=== PATIENT | male | born 1965 | race Caucasian/White ===

== ENCOUNTER → 2016-09-09 | Outpatient (CLI) | payer OTHER | LOC: FIMAGING 15:28 | PROVIDERS: ATTEND Neurological Surgery | DX: Z98.1 Arthrodesis status (principal); M54.2 Cervicalgia ==

== ENCOUNTER 2018-05-15 09:15 | Inpatient (IN) | payer OTHER ==
[2018-05-15] MEDS ORDERED: BUPIVACAINE 0.25% 30 ML SDV ONE (09:23)
[2018-05-15] MEDS ORDERED: BACITRACIN 50,000 UNITS/10 ML SYR IRR ONE (09:24)
[2018-05-15] MEDS ORDERED: THROMBIN (BOVINE) 5,000 UNIT VIAL TP ONE (09:24)
[2018-05-15] MEDS ORDERED: EPINEPHrine 1 MG/ML INJ ONE (09:24)
[2018-05-15] MEDS ORDERED: ACETAMINOPHEN 500 MG TAB PO ONE (09:30)
[2018-05-15] MEDS ORDERED: ceFAZolin 2 GM/DEXTROSE 100 ML IV ONE (09:30)
[2018-05-15] MEDS ORDERED: GABAPENTIN 300 MG CAP PO ONE (09:30)
[2018-05-15] MEDS ORDERED: LR 1,000 ML IV ONE (10:14)
--- NOTE | 2018-05-15 10:20 | PDANEPAE ---
ANE Past Medical History - Cardiovascular History Hx Hypertension: No Hx Arrhythmias: No Hx Chest Pain: No Hx Coronary Artery / Peripheral Vascular Disease: Yes Hx CHF / Valvular Disease: No Hx Palpitations: No Cardiovascular History Comment: STENT 07/2017. ? MILD MA - Pulmonary History Hx COPD: No Hx Asthma/Reactive Airway Disease: No Hx Recent Upper Respiratory Infection: No Hx Oxygen in Use at Home: No Hx Sleep Apnea: Yes Sleep Apnea Screening Result - Last Documented: Positive Pulmonary History Comment: HADLEY W/CPAP INSTRUCTED TO BRING DOS - Neurologic History Hx Cerebrovascular Accident: No Hx Seizures: No Hx Dementia: No - Endocrine History Hx Diabetes: No - Renal History Hx Renal Disorders: No - Liver History Hx Hepatic Disorders: No - Neurological & Psychiatric Hx Hx Neurological and Psychiatric Disorders: Yes Neurological / Psychiatric History Comment: cervical stenosis - Cancer History Hx Cancer: No - Congenital Disorder History Hx Congenital Disorders: No - GI History Hx Gastrointestinal Disorders: Yes Gastrointestinal History Comment: INTERMITTENT HEARTBURN USES OTC - Other Health History Other Health History: SPINAL STENOSIS - Chronic Pain History Chronic Pain: Yes (CERVICAL WITH RADIATION IN TO RT SHLDR/ARM) - Surgical History Prior Surgeries: cervical fusion x2 LAST 2010. LT ARM X2. JULIA KNEE'S SCOPES ANE Review of Systems Review of Systems: - Exercise capacity METS (RN): 4 METS ANE Patient History - Allergies Allergies/Adverse Reactions: No Known Allergies Allergy (Verified 04/27/18 10:57) - Home Medications Home Medications: DULoxetine [Cymbalta 30 MG (*)] 30 mg PO DAILY 05/09/17 [Last Taken 05/15/18] Aspirin [Aspirin 81mg (*)] 81 mg PO DAILY 04/27/18 [Last Taken 05/07/18] Atorvastatin Calcium [Lipitor 40 mg (*)] 40 mg PO DAILY 04/27/18 [Last Taken ] Clopidogrel Bisulfate [Plavix (*)] 75 mg PO DAILY 04/27/18 [Last Taken 05/07/18] Metoprolol Succinate Xr [Toprol Xl 25 mg (*)] 25 mg PO DAILY 04/27/18 [Last Taken 05/15/18] Testosterone IM [Testosterone 100mg/ml IM inj (*)] 130 mg IM TU 04/27/18 [Last Taken 05/11/18] - NPO status NPO Since - Liquids (Date): 05/15/18 NPO Since - Liquids (Time): 07:30 NPO Since - Solids (Date): 05/14/18 NPO Since - Solids (Time): 19:00 - Smoking Hx Smoking Status: Never smoked ANE Labs/Vital Signs - Vital Signs Blood Pressure: 108/76 Heart Rate: 65 Respiratory Rate: 16 O2 Sat (%): 94 Height: 185.42 cm Weight: 95.254 kg ANE Physical Exam - Airway Mallampati Score: Class 1 - ASA Status ASA Status: III ANE Anesthesia Plan Anesthesia Plan: general endotracheal anesthesia
--- NOTE | 2018-05-15 10:24 | PDHPUP ---
History & Physical Update H&P update statement: This history and physical update is based on an assessment of the patient which was completed after admission or registration (within 24 hours), but prior to the surgery/procedure. H&P update: H&P reviewed & patient examined, no change in patient's condition since H&P completed
[2018-05-15] MEDS ORDERED: MIDAZOLAM 2 MG/2 ML VIAL ONE (10:25)
[2018-05-15] MEDS ORDERED: fentaNYL 100 MCG/2 ML INJ ONE ×3 (10:27→14:55)
[2018-05-15] MEDS ORDERED: PROPOFOL 200 MG/20 ML VIAL ONE (10:27)
[2018-05-15] MEDS ORDERED: PROPOFOL/EMULSION 500 MG/50 ML BOTTLE IV ONE ×2 (10:28→13:03)
[2018-05-15] MEDS ORDERED: LACTULOSE 20 GM/30 ML UDCUP PO PRN (11:13)
[2018-05-15] MEDS ORDERED: POLYETHYLENE GLYCOL 3350 17 GM PKT PO PRN (11:13)
[2018-05-15] MEDS ORDERED: BISACODYL 10 MG SUPP PR PRN (11:13)
[2018-05-15] MEDS ORDERED: ONDANSETRON 4 MG/2 ML VIAL IVP PRN ×2 (11:13→14:50)
[2018-05-15] MEDS ORDERED: diphenhydrAMINE 25 MG CAP PO PRN (11:13)
[2018-05-15] MEDS ORDERED: MAGNESIUM HYDROXIDE 30 ML UDCUP PO PRN (11:13)
[2018-05-15] MEDS ORDERED: ONDANSETRON DISINTEGRATING 4 MG TAB PO PRN (11:13)
[2018-05-15] MEDS ORDERED: METOCLOPRAMIDE 10 MG/2 ML VIAL ONE (11:14)
[2018-05-15] MEDS ORDERED: ONDANSETRON 4 MG/2 ML VIAL ONE (11:14)
[2018-05-15] MEDS ORDERED: ROCURONIUM 50 MG/5 ML VIAL ONE (11:14)
[2018-05-15] MEDS ORDERED: NS 1,000 ML IV SCH (11:15)
--- NOTE | 2018-05-15 11:32 | PDMN ---
Medical Necessity Medical necessity: AUTH # [id number] APPROVED FOR INPT VALID FOR ONE DOS. DONE IN PT MCG: S320 cervical fusion: A-1 day: hardware removal C4/5,C6/7
[2018-05-15] MEDS ORDERED: METHYLENE BLUE 0.5% 50 MG/10 ML AMP ONE (12:58)
[2018-05-15] MEDS ORDERED: GABAPENTIN 300 MG CAP PO SCH (14:00)
[2018-05-15] MEDS ORDERED: ceFAZolin 2 GM/DEXTROSE 100 ML IV SCH (14:00)
[2018-05-15] MEDS ORDERED: ACETAMINOPHEN 500 MG TAB PO SCH (14:00)
[2018-05-15] MEDS ORDERED: NALOXONE HCL 0.4 MG/ML INJ IVP PRN (14:50)
[2018-05-15] MEDS ORDERED: PROMETHAZINE HCL 25 MG/ML INJ IVP PRN (14:50)
[2018-05-15] MEDS ORDERED: LR 500 ML IV PRN (14:50)
--- NOTE | 2018-05-15 14:52 | POSTANESTH ---
Post Anesthetic Evaluation Cardiovascular Status: Similar to Pre-Op Cond Respiratory Status: Normal, Stable Level of Consciousness/Mental Status: Can Participate in Eval Pain Control: Adequate, Prn Tx Ordered Nausea/Vomiting Control: Adequate, Prn Tx Ordered Complications Possibly Related to Anesthesia: None Noted
[2018-05-15] MEDS: fentaNYL 100 MCG/2 ML INJ IVP PRN ×2 (14:59→15:04)
[2018-05-15] MEDS ORDERED: HYDROmorphONE/DILAUDID 2 MG/ML INJ ONE (15:09)
[2018-05-15] MEDS: HYDROmorphONE/DILAUDID 2 MG/ML INJ IVP PRN ×5 (15:13→16:05)
--- NOTE | 2018-05-15 15:17 | POSTOPPROG ---
Post Op Note Date of Operation: 05/15/18 Surgeon: Lesli Lr Auto Service Advisor: Karin Dorsey NP Anesthesiologist: Octavia Anesthesia: GET(General Endotracheal) Pre-op Diagnosis: Cervical stenosis Procedure: Hardware removal with ACDF C5-6 with ACDF C4-5, C6-7 Inf/Abcess present in the surg proc area at time of surgery?: No Depth: Deep Incisional (Fascial) EBL: 50-100 Total fluids administered: see anesthesia Complications: None Date of Surgery: 05/15/18 Post Op Day: 0 Assessment/Plan: Assessment: 53 yr old M s/p Hardware removal C5-6 with ACDF C4-5, C6-7 Plan: -Admit med surg -PT/OT/ST -Hard collar in place -Pain management -Call neurosurgery with questions/concerns Subjective: Waking up in PACU Objective: Waking up in PACU, awake and talking PERRLA No facial droop 5/5 BUE B[address] Collar in place Dressing CDI Appropriate Neuro Check Frequency Ordered: Yes
--- NOTE | 2018-05-15 16:06 | GOP ---
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 Right cervi riaz radiculopathy. Cervical stenosis and right foraminal stenosis C6-7. Prior cervical fusion, C5-6 . 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 Right cerv ical radiculopathy. Cervical stenosis and right foraminal stenosis C6-7. Prior cervical fusion, C5- 6. PROCEDURE PERFORMED: Removal of anterior cervical instrumentation at C4-5 (06234). Anterior cervica l diskectomy with repeat decompression at C4-5 with arthrodesis (12485). Placement of biomechanical intervertebral device C4-5 (65668). Anterior cervical arthrodesis and decompression C6-7 (99655). P lacement of anterior cervical plating system 3 levels (32893) at C4, C5, C6, C7. Same incision bone graft harvest (02207). FINDINGS: ESTIMATED BLOOD LOSS: 100 cc INDICATIONS: The patient is a 53-year-old gentleman who has had a number of cervical spine surgeries , including surgery at C5-6 with successful arthrodesis there, followed later by arthrodesis and plat ing at C4-5. Unfortunately, this was complicated by pseudarthrosis. He had persistent cervicalgia a nd developed right-sided radiating pain, and MRI demonstrated evidence of cervical stenosis, both bel ow and at the same level of his prior surgery. I felt that this pseudoarthrosis might, in fact, be s ymptomatic, although it is difficult to know with certainty. 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 I suggested re-doing the C4-5 level and removing that plate, followed by an ACDF at C6-7, but we also discussed posterior cervical instrumentation as well as the chance to minimize pseudoarthrosis. He understood that would give him almost a near certain chance of healing the revised cervical surgery t hat I was going to do, but that it would come at expense of perioperative discomfort. The surgery po steriorly is considerably uncomfortable and would be especially difficult for him. I thought it was reasonable to try doing an ACDF at C4-5 and C6-7 without it, but he knew that he was at increased ris k of another pseudarthrosis. The risk of esophageal injury, carotid injury, recurrent laryngeal nerv e injury was discussed. He knew that he may have severe and profound dysphagia from the anterior dean grajeda, knew there was risk of injury to the esophagus, itself, and damage to the recurrent laryngeal nerve, as well as other nerves in the neck. He knew there was a chance surgery may fail to give him relief and that in time, he may ultimately undergo another surgery in the cervical spine. He wanted to proceed despite the risks and I carefully discussed surgery on several occasions over many years i n fact, and he did finally elect to proceed. DESCRIPTION OF PROCEDURE: The patient was taken to the operating room, placed in the supine position . General anesthesia was begun. He was carefully positioned in the supine position on operating jeremiah m table with a midline shoulder roll. His arms were tucked at his side. His neck was sterilely prep ped and draped in usual fashion. He had had numerous incisions on the right side of the neck and I e lected to go from the left. He had right-sided pain. We made a transverse incision in the lower neck crease on the left-hand side and dissected through e platysma with the Bovie cautery. The subcutaneous tissue was dissected using a combination of blun t and sharp dissection medial to the sternocleidomastoid and out lateral to the strap muscles down to the prevertebral space. His neck was quite thick and very deep, and it did, indeed, take considerab le time to get down to the prevertebral space. We worked our way down and I found the disk space radha t I thought might be C6-7, we shot an x-ray and indeed, it was. We went rostral from this, up across a 5, 6 area and then I found the anterior cervical plate at C4-5. We had a little bit of a reach fr om our original exposure. We actually came out and dissected somewhat more rostrally through the cornelio e skin incision medial to the sternocleidomastoid and lateral to the strap muscles down to the prever tebral space. This gave us a much better angle at C4-5. This became contiguous with the prior disse ction and we had an excellent exposure. His esophagus was totally stuck to the ventral surface of the spine at C4-5 and C5-6, and we used a p eanut to gently peel the esophagus up off the spine and we were ultimately able to mobilize then. Th ere was no breach of the esophagus, itself. At the end of the procedure, we did, however, test esoph ageal integrity by infusing methylene blue into the area of our surgery and we saw none leaking at th e end of surgery. We exposed the prior plate and took the longus colli muscles off the spine at C4-5, 5-6, 6-7, and the n used the Nuvasive hardware to remove the cervical plate at C4-5. It was easily removed. We then p laced a retractor underneath the longus colli muscle and under the microscope. We drilled out the ar ea of the pseudoarthrosis. There was a contiguous scar through the disk space at C4-[address] ck to the area of the spinal canal. We simply followed the scar down to the spinal canal. We drille d the scar completely out and we drilled a large amount of subchondral bone and harvested this for au tologous grafting purposes. We then opened the area of the posterior and longitudinal ligament. It did not appear to be intact. There had been prior surgery done here, but we worked our way along the posterior margin of the vert ebral body out above the C5 pedicle and into the neural foramen for the exiting C5 nerve root and got a great decompression, even though prior decompression been performed there. There was foraminal st enosis. We chose a 6 mm anatomic PEEK cage, packed it with bone autograft, and then inserted it at C 4-5, and got a great fit. We then adjusted our retractor down to the C5-6 level. This was clearly totally fused, and then, we went down to C6-7. Here, we placed distraction pins in the vertebral bodies, distracted at C6-7, rem jocelyn the disk and the cartilaginous endplate completely. We drilled and harvested subchondral bone f or autologous grafting purposes and opened the PLL and decompressed the thecal sac and the neural for amen bilaterally and we got a great decompression. We then chose an 8 x 16 x 14 mm anatomic PTC cage impacted with large amounts of bone autograft, and inserted it at C6-7. We then sized the plate and chose a 57 mm Zevo plate and increased the lordosis at the bottom end of the plate especially to allow us to attach to the C7 vertebral body. We used a 3.5 mm screws at C4 a nd 3.5 x 17 mm screw at C7. We shot an x-ray and the screws were in good position. The C7 screws ap peared to not traverse the C7-T1 disk and they did not interfere with the implant at C6-7 itself, but it was difficult to understand their true trajectory based upon the patient's body habitus. We then put the remaining screws in place at C4, C5, C6, and C7, and on final x-rays, they all appeared to b e excellent. We had adjusted the C4 screws inferiorly. The prior plate was somewhat high and we had brand new screws at C4 that were just above our implant at C4-5. I was very happy with this. We locked all the screws according to company specification. We then took time to meticulously inspe ct the area. There was no evidence of methylene blue in the prevertebral space. We achieved meticul ous hemostasis. We then placed 0.25% Marcaine into the prevertebral space. We then closed the platy sma with interrupted Vicryl sutures and the skin was reapproximated with interrupted Vicryl sutures. Steri-Strips were applied the skin. The patient was reversed from anesthesia, extubated, and transf erred to recovery room in stable condition. There were no complications. COMPLICATIONS: None. INSTRUMENTATION USED: We removed a NuVasive anterior cervical plate and we placed a Medtronic 3-leve l plate, it was a 57 mm Zevo plate with 3.5 x 17 mm screws with a 6 x 16 x 14 mm anatomic PTC cage at C4-5. We also used an 8 x 16 x 14 mm anatomic PTC cage at C6-7. COMPLICATIONS: None. /[id number]/MODL
[2018-05-15] MEDS: oxyCODONE IR 5 MG TAB PO PRN ×2 (18:38→23:01)
[2018-05-15] MEDS: METHOCARBAMOL 750 MG TAB PO PRN (18:46)
[2018-05-15] MEDS: SENNOSIDES/DOCUSATE SODIUM TAB PO SCH (20:46)
[2018-05-15] MEDS: FAMOTIDINE 20 MG TAB PO SCH (20:47)
[2018-05-15] MEDS: TEMAZEPAM 15 MG CAP PO PRN (23:01)
[2018-05-16] MEDS: GABAPENTIN 300 MG CAP PO SCH ×3 (00:12→17:02)
[2018-05-16] MEDS: ACETAMINOPHEN 500 MG TAB PO SCH ×3 (00:12→16:58)
[2018-05-16] MEDS ORDERED: ceFAZolin 2 GM/DEXTROSE 100 ML IV SCH (01:00)
[2018-05-16] MEDS: oxyCODONE IR 5 MG TAB PO PRN ×5 (03:51→20:59)
[2018-05-16] MEDS: METHOCARBAMOL 750 MG TAB PO PRN ×3 (03:51→19:07)
[2018-05-16 04:47] LABS: PLATELET COUNT 178 10^3/uL (150-400)
--- NOTE | 2018-05-16 07:58 | NEUSURGPN ---
Date of Surgery: 05/15/18 Post Op Day: 1 Assessment/Plan: Assessment: 53 yr old M s/p Hardware removal C5-6 with ACDF C4-5, C6-7 POD#1 Plan: -PT/OT/ST -Hard collar in place -Pain management, currently controlled with oral medications -Post op xrays pending -Call neurosurgery with questions/concerns Discussed with Dr Lr Subjective: numbness improved in right hand Objective: AxO x4 HEREDIA x4 5/5 BUE, BLE Dressing CDI Collar in place Neuro Check Frequency: per routine Urinary Catheter in Place: No - Physician Discussed Patient with Dr.: Be Patient Seen by : Be Neurosurgery Physical Exam - Vitals, I&O, Labs I and O 05/15/18 05/16/18 05/17/18 05:59 05:59 05:59 Intake Total 3410 Output Total 550 Balance 2860 Weight 95.254 kg Intake: Oral (ml) 1810 IV Intake (ml) 1500 IV Infused (ml) 100 ceFAZolin 2 GM/DEXTROSE 100 100 ml @ 200 mls/hr IV Q8H [facility] Rx#:[id number] Output: Urine (ml) 425 Urinal 425 Estimated Blood Loss (ml) 125 Other: Intake Quantity Yes Sufficient Number of Voids Toilet 1 Urinal 1 Vital Signs Temp Pulse Resp BP Pulse Ox 36.8 C 78 17 117/63 95 05/16/18 03:45 05/16/18 03:45 05/16/18 03:45 05/16/18 03:45 05/16/18 03:45 Laboratory Results 05/16/18 04:28 05/16/18 04:28 ICD10 Worksheet Patient Problems: Problems Problem Status Onset Cervical stenosis of spine Acute - ICD10 Problem Qualifiers (1) Cervical stenosis of spine
[2018-05-16] MEDS: ATORVASTATIN CALCIUM 40 MG TAB PO SCH (08:52)
[2018-05-16] MEDS: DULoxetine 30 MG CAP PO SCH (08:52)
[2018-05-16] MEDS: METOPROLOL SUCCINATE XR 25 MG TAB PO SCH (08:53)
[2018-05-16] MEDS: SENNOSIDES/DOCUSATE SODIUM TAB PO SCH ×2 (08:53→20:47)
[2018-05-16] MEDS: FAMOTIDINE 20 MG TAB PO SCH ×2 (08:54→20:48)
--- NOTE | 2018-05-16 14:46 | ASMTCMCOM ---
CM Note CM Note Notes: Pt had planned cervical fusion and hardware removal. Pt resides with spouse, plan [facility] OT/HOUSE CARPENTER HELPER rec home, PT rec home/outpatient. Anticipate pt will d/c when medically stable, likely independent. Date Signed: 05/16/2018 02:46 PM Electronically Signed By:ERICA Figueroa
[2018-05-16] MEDS: TEMAZEPAM 15 MG CAP PO PRN (22:21)
[2018-05-17] MEDS: GABAPENTIN 300 MG CAP PO SCH ×2 (01:31→08:24)
[2018-05-17] MEDS: ACETAMINOPHEN 500 MG TAB PO SCH ×2 (01:31→08:25)
[2018-05-17] MEDS: oxyCODONE IR 5 MG TAB PO PRN ×2 (06:19→10:15)
[2018-05-17 07:51] VITALS: BP 138/84
--- NOTE | 2018-05-17 08:07 | NEUSURGPN ---
Date of Surgery: 05/15/18 Post Op Day: 2 Assessment/Plan: Assessment: 53 yr old M s/p Hardware removal with ACDF C4-5, C6-7 POD#2 Plan: -Patient doing well this am -PT/OT/ST -Hard collar in place, ok to wear soft but encouraged patient to wear hard to sleep in. Betsy collar for shower -Pain management, currently controlled with oral medications -Post op xrays stable hardware placement -Ok to discharge home this afternoon -Call neurosurgery with questions/concerns Dr Lr saw patient as well this am Subjective: Sitting up in bed doing well, hard collar in place Objective: AxO x4 HEREDIA x4 5/5 BUE, BLE Steri strips CDI Collar in place Neuro Check Frequency: per routine Urinary Catheter in Place: No - Physician Discussed Patient with DrMir: Be Patient Seen by : Be Neurosurgery Physical Exam - Vitals, I&O, Labs I and O 05/16/18 05/17/18 05/18/18 05:59 05:59 05:59 Intake Total 3410 2750 Output Total 550 750 Balance 2860 2000 Weight 95.254 kg Intake: Oral (ml) 1810 2750 IV Intake (ml) 1500 IV Infused (ml) 100 ceFAZolin 2 GM/DEXTROSE 100 100 ml @ 200 mls/hr IV Q8H [facility] Rx#:[id number] Output: Urine (ml) 425 750 Toilet 750 Urinal 425 Estimated Blood Loss (ml) 125 Other: Intake Quantity Yes Yes Sufficient Number of Voids Toilet 1 1 Urinal 1 Vital Signs Temp Pulse Resp BP Pulse Ox 37.2 C 83 14 138/84 H 90 L 05/17/18 07:50 05/17/18 07:50 05/17/18 07:50 05/17/18 07:50 05/17/18 07:50 Laboratory Results 05/16/18 04:28 05/16/18 04:28 ICD10 Worksheet Patient Problems: Problems Problem Status Onset Cervical stenosis of spine Acute - ICD10 Problem Qualifiers (1) Cervical stenosis of spine
[2018-05-17] MEDS: METHOCARBAMOL 750 MG TAB PO PRN (08:17)
[2018-05-17] MEDS: METOPROLOL SUCCINATE XR 25 MG TAB PO SCH (08:23)
[2018-05-17] MEDS: SENNOSIDES/DOCUSATE SODIUM TAB PO SCH (08:23)
[2018-05-17] MEDS: DULoxetine 30 MG CAP PO SCH (08:24)
[2018-05-17] MEDS: ATORVASTATIN CALCIUM 40 MG TAB PO SCH (08:24)
[2018-05-17] MEDS: FAMOTIDINE 20 MG TAB PO SCH (08:24)
--- NOTE | 2018-05-17 11:04 | ASMTLACE ---
LACE Length of stay for Answers: 3 days current admission Acuity / Level of Answers: Yes Care: Did the patient have an inpatient admission? Comorbidities - select Answers: Coronary Artery Disease all that apply Opioid dependence / Chronic pain Previous myocardial infarction Other Notes: Cervical stenosis # of Emergency department Answers: 0 visits in the last 6 months Score: 14 Date Signed: 05/17/2018 11:04 AM Electronically Signed By:ERICA Figueroa
--- NOTE | 2018-05-17 11:05 | ASMTCMCOM ---
CM Note CM Note Notes: Pt medically stable for d/c, no CM d/c needs identified. Date Signed: 05/17/2018 11:04 AM Electronically Signed By:ERICA Figueroa
[2018-05-18] MEDS ORDERED: ENOXAPARIN 40 MG/0.4 ML SYR SC SCH (09:00)
[2018-05-18] MEDS ORDERED: TESTOSTERONE IM 100 MG/ML SYRINGE IM SCH (09:00)
--- NOTE | 2018-05-20 13:50 | GDS ---
PRIMARY DIAGNOSIS: Cervical stenosis. OPERATIONS AND PROCEDURES: May 15, 2018, Dr. Bryson Lr performed anterior cervical diskectomy and fusion, C4-5, C6-7, with plate removal at C5-6. HOSPITAL COURSE: Patient presented to the [facility] on May 15, 2018, for a plate removal at C5-6 and anterior cervical diskectomy and fusion of C4-5 and C6-[address] Lr. Patient tolerated the procedure without complications. Please see his operative note for further details. After the operation, the patient was in stable condition and transferred from the OR to the PACU, and then to the surgical floor. While on the floor, the patient received physical therapy, occupational therapy, and speech therapy as well as pain management. Patient was in stable condition and pain was well controlled with oral medications, and subsequently discharged to home on May 17, 2018. Patient was instructed to follow up in the office with Dr. Lr in 2 weeks. They have been instructed to contact the office with any questions or concerns at [phone]. DISCHARGE INSTRUCTIONS: Patient is to wear a hard cervical collar at all times. Patient was instructed not to do any bending or twisting of his neck, and not to lift greater than 10 pounds. It is okay for the patient to shower on postop day 3. Patient was instructed to leave Steri-Strips in place and they will be removed at his 2 week postop visit if they have not already fallen off. Patient will follow up for a 2 week postop visit. DISCHARGE MEDICATIONS: See discharge medication list for details. /[id number]/MODL MTDD
== END 2018-05-17 10:40 | disposition home or self-care (01) | DRG 473 ==
LOC: F3N 09:15
PROVIDERS: ADMIT Neurological Surgery; ATTEND Neurological Surgery
PROC: 0RG20A0 Fusion of 2 or more Cervical Vertebral Joints with Interbody Fusion Device, Anterior Approach, Anterior Column, Open Approach (ICD-10-PCS; principal; 2018-05-15 10:45)
PROC: 4A1004G Monitoring of Central Nervous Electrical Activity, Intraoperative, Open Approach (ICD-10-PCS; principal; 2018-05-15 10:45)
PROC: 0RP10AZ Removal of Interbody Fusion Device from Cervical Vertebral Joint, Open Approach (ICD-10-PCS; principal; 2018-05-15 10:45)
PROC: 01N10ZZ Release Cervical Nerve, Open Approach (ICD-10-PCS; principal; 2018-05-15 10:45)
PROC: 00NW0ZZ Release Cervical Spinal Cord, Open Approach (ICD-10-PCS; principal; 2018-05-15 10:45)
DX: M96.0 Pseudarthrosis after fusion or arthrodesis (principal); M50.121 Cervical disc disorder at C4-C5 level with radiculopathy; Z95.5 Presence of coronary angioplasty implant and graft; G47.33 Obstructive sleep apnea (adult) (pediatric)
CPT/HCPCS: 92526-GN; 92610-GN; 97161-GP; 97166-GO; C1713; J0171; J0690; J1170; J2250; J2405; J2704; J2765; J3010; Q9968